=== PATIENT | female | born 1965 | race Caucasian/White ===

== ENCOUNTER 2016-07-28 18:34 | Emergency (ER) | payer OTHER ==
[2016-07-28 20:12] LABS: Hematocrit 44 % (35-47); Hemoglobin 14.6 g/dl (12.0-16.0); Mean Corpuscular HGB Conc 33 g/dl (31-36); Mean Corpuscular Hemoglobin 32 pg (27-31); Mean Corpuscular Volume 96 fL (80-97); Red Blood Count 4.61 10^6/ul (4.0-5.4); Red Cell Distribution Width 14 % (10.5-15); White Blood Count 9.6 10^3/ul (3.5-10.8)
[2016-07-28 20:14] LABS: Comments Flag Yes
[2016-07-28 20:20] LABS: Anion Gap 9 mmol/L (2-11); BUN/Creatinine Ratio 13.6 (8-20); Blood Urea Nitrogen 11 mg/dL (6-24); CO2 Carbon Dioxide 23 mmol/L (22-32); Calcium 9.8 mg/dL (8.6-10.3); Chloride 104 mmol/L (101-111); EGFR African American 97.1 (>60); EGFR Non-African American 75.5 (>60); Glucose 90 mg/dL (70-100); Potassium 4.5 mmol/L (3.5-5.0); Sodium 136 mmol/L (133-145)
[2016-07-28 20:29] LABS: Mean Platelet Volume 9 um3 (7.4-10.4)
[2016-07-28 20:30] LABS: Acetaminophen < 15 mcg/mL; Alcohol 316 mg/dL (<10); Salicylate < 2.50 mg/dL (<30)
[2016-07-28 20:41] LABS: TSH (Thyroid Stimulating Horm) 0.85 mcIU/mL (0.34-5.60)
[2016-07-29 02:32] VITALS: BP 118/71
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
== END 2016-07-29 06:50 | disposition home or self-care (01) ==
LOC: ED 18:34
DX: F10.129 Alcohol abuse with intoxication, unspecified (principal); F32.9 Major depressive disorder, single episode, unspecified; F41.8 Other specified anxiety disorders
CPT/HCPCS: 36415; 80048; 80320; 80329; 84443; 85027; 99284; G0480

== ENCOUNTER 2016-08-24 11:16 | Inpatient (IN) | payer OTHER ==
[2016-08-24] MEDS ORDERED: Thiamine IV* 100 MG, Folic Acid IV* 1 MG, Multiple Vitamin IV ADULT* 10 ML in NS 0.9% 1... IV ONE ×2 (11:32→12:44)
--- NOTE | 2016-08-24 12:26 | ED ---
Substance Abuse/Use - HPI Summary HPI Summary: Pt here requesting detox from ETOH. She has been drinking 2 pints of vodka daily over the past 5-6 years. She last attempted detox around Andrew time - went through [facility] for acute detox then was transferred to [facility] for 2 more weeks but was not allowed admission d/t "medical issues" (pt is unable to articulate reason today however she was last seen here on.... by Dr. Antonio and left AMA - reason for d/c from [facility] in this note was withdrawal seizures. Her last drink was 2 hours ago - at this time, she is feeling very anxious and has photosensitivity. She has some physical agitation as well. Apologizes repeatedly and is crying throughout interview. Her partner is w/ her and reports she has a long standing h/o ETOH abuse w/ multiple attempts at detox. She currently denies nausea, vomiting, headache. When asked if she's sweating, reports this just started now and is mild. When asked about visual hallucinations, states she sees things all the time for many years - does not specify when asked. When asked if she has auditory hallucinations also states yes, but again, cannot specify what she's hearing. She does not have a tremor nor does she appear to have tactile disturbances. Reports anxiety it extremely elevated. She is A&O x 3. She has difficulty relaying her medical conditions and medications - requests her partner speaks for her but when prompted to do so herself, she is able. - History Of Current Complaint Chief Complaint: EDDetoxRequest Stated Complaint: DETOX REQUEST Time Seen by Provider: 08/24/16 11:32 Hx Obtained From: Patient, Family/[employer] Support - male partner - Allergies/Home Medications Allergies/Adverse Reactions: Allergies Allergy/AdvReac Type Severity Reaction Status Date / Time Sulfa Antibiotics Allergy Severe GI Upset Verified 07/28/16 18:56 Food Allergy Intermediate Headache Verified 07/28/16 20:11 Topiramate [From Topamax] Allergy Intermediate Dizziness Verified 07/28/16 20:11 Ascorbate [From Environ] Allergy Mild Unknown Verified 07/28/16 20:11 Reaction Details Erythromycin Allergy Mild GI Upset Verified 07/28/16 20:11 Iron [From Environ] Allergy Mild Unknown Verified 07/28/16 20:11 Reaction Details PMH/Surg Hx/FS Hx/Imm Hx Previously Healthy: Yes Endocrine/Hematology History: Reports: Hx Diabetes - supposed to be diet controlled, but not sure it is well controlled Denies: Hx Anticoagulant Therapy, Hx Blood Disorders, Hx Thyroid Disease Cardiovascular History: Reports: Hx Atrial Fibrillation - ?, Hx Hypercholesterolemia - lipitor, Hx Hypertension - takes lisinopril and propranolol Respiratory History: Reports: Hx Asthma - albuterol GI History: Reports: Hx Gastroesophageal Reflux Disease - prilosec Neurological History: Reports: Other Neuro Impairments/Disorders - acephalgia migraine dx x 10 years Psychiatric History: Reports: Hx Substance Abuse - EtOH dependence - 2 pints vodka daily - last drink 10:30am on 08/24/2016 Denies: Hx of Violent Episodes Against Others Infectious Disease History: No Infectious Disease History: Denies: Traveled Outside the [place] in Last 30 Days - Family History Known Family History: Negative: Cardiac Disease, Hypertension, Diabetes - Social History Alcohol Use: Daily Alcohol Amount: 2 pints vodka daily Hx Substance Use: No Substance Use Type: Reports: None Hx Tobacco Use: No Smoking Status (MU): Never Smoked Tobacco Review of Systems Negative: Fever, Chills Positive: Photophobia ENT: Negative Cardiovascular: Negative Respiratory: Negative Gastrointestinal: Negative Positive: no symptoms reported Musculoskeletal: Negative Skin: Negative Neurological: Negative Positive: Anxious All Other Systems Reviewed And Are Negative: Yes Physical Exam Triage Information Reviewed: Yes Vital Signs On Initial Exam: Initial Vitals Temp Pulse Resp BP Pulse Ox 98.9 F 88 18 163/94 99 08/24/16 11:18 08/24/16 11:18 08/24/16 11:18 08/24/16 11:18 08/24/16 11:18 Vital Signs Reviewed: Yes Appearance: Positive: Pain Distress, Obese Skin: Positive: Warm - cheeks flushed, Dry Head/Face: Positive: Normal Head/Face Inspection Eyes: Positive: EOMI, KINDRA - photophobia, Conjunctiva Clear - anicteric sclera. Negative: Conjunctiva Inflammed, Discharge ENT: Positive: Normal ENT inspection, Hearing grossly normal, Pharynx normal. Negative: Nasal congestion, Nasal drainage Neck: Positive: Supple, Nontender Respiratory/Lung Sounds: Positive: Clear to Auscultation, Breath Sounds Present. Negative: Rales, Rhonchi, Wheezes Cardiovascular: Positive: Normal, S1, S2. Negative: Leg Edema Left, Leg Edema Right Abdomen Description: Positive: Nontender, Soft Bowel Sounds: Positive: Present Musculoskeletal: Positive: Normal, Strength/ROM Intact Neurological: Positive: Normal, Sensory/Motor Intact, Alert, Oriented to Person Place, Time, CN Intact II-III Psychiatric: Positive: Anxious - crying; restless in stretcher, moving legs at times; apologizes repeatedly; adamantly comments she does not want to drink ( ETOH) anymore; tries to defer to male partner multiple times throughout HPI however partner and myself encourage pt to give answers which she eventually does; no SI/HI Diagnostics - Vital Signs Vital Signs Temp Pulse Resp BP Pulse Ox 08/24/16 11:18 98.9 F 88 18 163/94 99 - Laboratory Result Diagrams: 08/24/16 12:20 08/24/16 12:20 Lab Statement: Any lab studies that have been ordered have been reviewed, and results considered in the medical decision making process. Re-Evaluation - Re-Evaluation First Eval Change: Worse - Penelope RN, to evaluate pt - more agitated, irritable and anxious despite banana bag, lisinopril and hydroxyzine - requesting ativan. WAM protocol performed (score 6) and pt presents w/ very mild sx of withdrawal - ordered propranolol as this is pt's baseline anti-hypertensive (and possibly a. fib tx) but this is taking long time so ordered ativan 1mg now and will also provide propranolol as soon as it arrives. Pt to be re-evaluated per protocol Course/Dx - Diagnoses Provider Diagnoses: Alcohol dependence - Physician Notifications Discussed Care Of Patient With: Dr. Jeronimo - will admit pt Discharge - Discharge Plan Condition: Stable Disposition: ADMITTED TO [facility]
[2016-08-24 12:33] LABS: Hematocrit 38 % (35-47); Hemoglobin 12.7 g/dl (12.0-16.0); Mean Corpuscular HGB Conc 33 g/dl (31-36); Mean Corpuscular Hemoglobin 32 pg (27-31); Mean Corpuscular Volume 96 fL (80-97); Mean Platelet Volume 7 um3 (7.4-10.4); Red Cell Distribution Width 15 % (10.5-15); White Blood Count 3.7 10^3/ul (3.5-10.8)
[2016-08-24 12:50] LABS: ALT 82 U/L (7-52); AST 50 U/L (13-39); Albumin 3.9 g/dL (3.2-5.2); Alkaline Phosphatase 78 U/L (34-104); Anion Gap 13 mmol/L (2-11); BUN/Creatinine Ratio 12.1 (8-20); Blood Urea Nitrogen 8 mg/dL (6-24); CO2 Carbon Dioxide 25 mmol/L (22-32); Calcium 8.4 mg/dL (8.6-10.3); Chloride 100 mmol/L (101-111); EGFR African American 122.9 (>60); EGFR Non-African American 95.6 (>60); Globulin 3.1 g/dL (2-4); Glucose 95 mg/dL (70-100); Potassium 3.6 mmol/L (3.5-5.0); Sodium 138 mmol/L (133-145)
[2016-08-24 13:09] LABS: Acetaminophen < 15 mcg/mL; Alcohol 306 mg/dL (<10); Salicylate < 2.50 mg/dL (<30)
[2016-08-24 13:19] LABS: TSH (Thyroid Stimulating Horm) 0.78 mcIU/mL (0.34-5.60)
[2016-08-24] MEDS ORDERED: Lisinopril TAB* 10 MG PO ONE (13:26)
[2016-08-24 13:56] LABS: Urine Bilirubin Negative (Negative); Urine Glucose Negative (Negative); Urine Nitrite Negative (Negative)
[2016-08-24] MEDS ORDERED: hydrOXYzine HCL TAB* 50 MG PO ONE (13:58)
[2016-08-24 14:13] LABS: Benzodiazepine Urine Screen None Detected (None Detect)
[2016-08-24] MEDS ORDERED: LORazepam INJ* 2 MG/ML 1 ML VIAL IV PUSH ONE (15:36)
[2016-08-24] MEDS: Propranolol LA CAP* 120 MG PO SCH (16:28)
[2016-08-24] MEDS ORDERED: Temazepam CAP* 15 MG PO PRN (17:13)
[2016-08-24] MEDS ORDERED: Al Hydrox/Mg Hydrox/Simet LIQ* 30 ML UDC PO PRN (17:13)
[2016-08-24] MEDS ORDERED: Acetaminophen TAB* 325 MG PO PRN (17:13)
[2016-08-24] MEDS ORDERED: MELATONIN 3 MG PO PRN (17:14)
[2016-08-24] MEDS ORDERED: Albuterol HFA INHALER* 8 gm MDI INH PRN (17:14)
[2016-08-24] MEDS ORDERED: Thiamine IV* 100 MG/ML 2 ML VIAL IM ONE (17:17)
[2016-08-24] MEDS ORDERED: Nicotine Inhaler* 10 MG AMP INH PRN (17:40)
[2016-08-24] MEDS: Promethazine TAB* 25 MG PO PRN (18:37)
[2016-08-24] MEDS: LORazepam TAB(*) 1 MG PO SCH ×2 (18:41→21:43)
[2016-08-24] MEDS: NS 0.9% 1000 ML* 1,000 ML IV SCH (19:24)
[2016-08-24] MEDS ORDERED: Ibuprofen TAB* 400 MG PO PRN (20:09)
[2016-08-24] MEDS: Gabapentin CAP(*) 300 MG PO SCH (21:42)
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
[2016-08-25] MEDS: LORazepam TAB(*) 1 MG PO SCH ×7 (00:08→20:41)
[2016-08-25] MEDS: Promethazine TAB* 25 MG PO PRN ×2 (03:36→15:25)
[2016-08-25] MEDS: NS 0.9% 1000 ML* 1,000 ML IV SCH (03:44)
[2016-08-25] MEDS ORDERED: Rizatriptan 10 MG TAB PO PRN (04:14)
[2016-08-25] MEDS: DULoxetine DR CAP* 30 MG CAP.DR PO SCH (08:13)
[2016-08-25] MEDS: Multivitamins/Minerals TAB PO SCH (08:13)
[2016-08-25] MEDS: Thiamine TAB* 100 MG TAB PO SCH (08:13)
[2016-08-25] MEDS: Gabapentin CAP(*) 300 MG PO SCH ×4 (08:13→20:42)
[2016-08-25] MEDS: Omeprazole CAP* 20 MG PO SCH (08:14)
[2016-08-25] MEDS: Folic Acid TAB* 1 MG PO SCH (08:15)
[2016-08-25] MEDS: Propranolol LA CAP* 120 MG PO SCH (09:46)
--- NOTE | 2016-08-25 10:48 | PN ---
Subjective Date of Service: 08/25/16 Interval History: pt feels well. Had mild withdrawal symptoms this am and received Ativan 1 mg PO. Objective Active Medications: Acetaminophen (Tylenol Tab*) 650 mg PO Q6H PRN PRN Reason: FEVER/PAIN Al Hydrox/Mg Hydrox/Simethicone (Maalox Plus*) 30 ml PO Q6H PRN PRN Reason: INDIGESTION Albuterol (Ventolin Hfa Inhaler*) 2 puff INH Q4H PRN PRN Reason: SHORTNESS OF BREATH Duloxetine HCl (Cymbalta Cap*) 60 mg PO DAILY [facility] Last Admin: 08/25/16 08:13 Dose: 60 mg Folic Acid (Folvite Tab*) 1 mg PO DAILY [facility] Last Admin: 08/25/16 08:15 Dose: 1 mg Gabapentin (Neurontin Cap(*)) 600 mg PO QID [facility] Last Admin: 08/25/16 08:13 Dose: 600 mg Ibuprofen (Motrin Tab*) 400 mg PO Q6H PRN PRN Reason: HEADACHE/PAIN Lorazepam (Ativan Tab(*)) 0 mg PO .PER WAM SCORE [facility] PRN Reason: Protocol Last Admin: 08/25/16 08:14 Dose: 1 mg Lorazepam (Ativan Tab(*)) 1 mg PO Q12HR [facility] Multivitamins/Minerals (Theragran/Minerals Tab*) 1 tab PO DAILY [facility] Last Admin: 08/25/16 08:13 Dose: 1 tab Nicotine (Nicotine Inhaler*) 10 mg INH Q2H PRN PRN Reason: CRAVING Non-Formulary Medication (Melatonin [Melatonin]) 3 mg PO BEDTIME PRN PRN Reason: INSOMNIA Omeprazole (Prilosec Cap*) 40 mg PO DAILY [facility] Last Admin: 08/25/16 08:14 Dose: 40 mg Promethazine HCl (Phenergan Tab*) 25 mg PO Q6H PRN PRN Reason: NAUSEA Last Admin: 08/25/16 03:36 Dose: 25 mg Propranolol HCl (Inderal La Cap*) 120 mg PO DAILY [facility] Last Admin: 08/25/16 09:46 Dose: 120 mg Rizatriptan Benzoate (Maxalt-Green Building Materials Designer (Nf)) 10 mg PO Q2H PRN; Protocol PRN Reason: MIGRAINE HEADACHE Thiamine HCl (Vitamin B-1 Tab*) 100 mg PO DAILY [facility] Last Admin: 08/25/16 08:13 Dose: 100 mg Vital Signs 08/24/16 08/24/16 08/24/16 17:20 17:30 18:00 Temperature Pulse Rate 77 78 76 Respiratory Rate Blood Pressure 149/91 154/87 147/85 (mmHg) O2 Sat by Pulse 93 94 92 Oximetry 08/24/16 08/24/16 08/24/16 18:30 18:41 19:08 Temperature 98.8 F Pulse Rate 80 83 Respiratory 16 20 Rate Blood Pressure 144/86 142/69 (mmHg) O2 Sat by Pulse 94 98 Oximetry 08/24/16 08/24/16 08/24/16 19:09 20:00 20:41 Temperature 98.8 F Pulse Rate 83 Respiratory 20 22 18 Rate Blood Pressure 142/69 (mmHg) O2 Sat by Pulse 98 Oximetry 08/24/16 08/24/16 08/24/16 21:13 21:32 21:42 Temperature 98.7 F Pulse Rate 76 Respiratory 18 18 18 Rate Blood Pressure 138/76 (mmHg) O2 Sat by Pulse 96 Oximetry 08/24/16 08/24/16 08/25/16 21:43 23:42 00:08 Temperature Pulse Rate Respiratory 18 18 18 Rate Blood Pressure (mmHg) O2 Sat by Pulse Oximetry 08/25/16 08/25/16 08/25/16 01:05 01:21 01:25 Temperature 97.9 F 99.0 F Pulse Rate 76 73 Respiratory 16 20 20 Rate Blood Pressure 156/86 159/82 (mmHg) O2 Sat by Pulse 96 96 Oximetry 08/25/16 08/25/16 08/25/16 02:08 03:25 03:35 Temperature 98.2 F Pulse Rate 65 Respiratory 22 22 22 Rate Blood Pressure 159/79 (mmHg) O2 Sat by Pulse 96 Oximetry 08/25/16 08/25/16 08/25/16 05:00 05:17 05:18 Temperature Pulse Rate Respiratory 20 20 20 Rate Blood Pressure (mmHg) O2 Sat by Pulse Oximetry 08/25/16 08/25/16 08/25/16 05:35 07:17 07:18 Temperature Pulse Rate Respiratory 20 16 16 Rate Blood Pressure (mmHg) O2 Sat by Pulse Oximetry 08/25/16 08/25/16 08/25/16 07:21 08:00 08:13 Temperature 97.9 F Pulse Rate 76 Respiratory 16 16 16 Rate Blood Pressure 139/73 (mmHg) O2 Sat by Pulse 97 Oximetry 08/25/16 08/25/16 08:14 09:10 Temperature 97.9 F Pulse Rate 70 Respiratory 16 17 Rate Blood Pressure 150/74 (mmHg) O2 Sat by Pulse 96 Oximetry Oxygen Devices in Use Now: None Appearance: 50 yo F in NAd, aAOx3 Eyes: No Scleral Icterus, PERRLA Ears/Nose/Mouth/Throat: NL Teeth, Lips, Gums, Mucous Membranes Moist Neck: NL Appearance and Movements; NL JVP, Trachea Midline Respiratory: Symmetrical Chest Expansion and Respiratory Effort, Clear to Auscultation Cardiovascular: NL Sounds; No Murmurs; No JVD, RRR Abdominal: NL Sounds; No Tenderness; No Distention Lymphatic: No Cervical Adenopathy Extremities: No Edema, No Clubbing, Cyanosis Skin: No Rash or Ulcers, No Nodules or Sclerosis Neurological: Alert and Oriented x 3, NL Muscle Strength and Tone Result Diagrams: 08/24/16 12:20 08/24/16 12:20 Assess/Plan/Problems-Billing Assessment: 50 yo F with h/o depression, alcoholism, seizures, DM(diet controlled), HTN, PATRICIA presents with ETOH level >300, withdrawing - Patient Problems (1) Alcohol dependence with acute alcoholic intoxication Comment: with now, mild withdrawal symptoms. due to h/o large quantities of vodka intake an day and h/o nonalcoholic seizures , will cont Ativan polo RAZIA and WAM protocol cont Thamine and Folate SW consult ordered (2) Depression Comment: cont Cymbalta, psychiatric consult needed once detoxed. Denies SI (3) Obstructive sleep apnea Comment: cont CPAP (4) HTN (hypertension) Comment: cont Inderal, lisinopril (5) Seizure Comment: cont neurontin, seizure precautions. (6) Diabetes Comment: diet controlled (7) DVT prophylaxis Comment: low risk, ambulation Status and Disposition: inpatient for ETOH withdrawal. anticipate inpatient stay x2-3 days.
[2016-08-25] MEDS ORDERED: CMCS: Melatonin (NF) 3 MG TAB PO PRN (19:52)
[2016-08-26] MEDS: DULoxetine DR CAP* 30 MG CAP.DR PO SCH (08:14)
[2016-08-26] MEDS: Multivitamins/Minerals TAB PO SCH (08:14)
[2016-08-26] MEDS: Lisinopril TAB* 10 MG PO SCH (08:14)
[2016-08-26] MEDS: Omeprazole CAP* 20 MG PO SCH (08:14)
[2016-08-26] MEDS: Thiamine TAB* 100 MG TAB PO SCH (08:15)
[2016-08-26] MEDS: Folic Acid TAB* 1 MG PO SCH (08:15)
[2016-08-26] MEDS: Gabapentin CAP(*) 300 MG PO SCH ×4 (08:15→21:10)
[2016-08-26] MEDS: Propranolol LA CAP* 120 MG PO SCH (08:15)
[2016-08-26] MEDS: LORazepam TAB(*) 1 MG PO SCH (08:16)
--- NOTE | 2016-08-26 10:10 | PN ---
Subjective Date of Service: 08/26/16 Interval History: Pt feels well. Still required AM dose of Ativan for tremors Objective Active Medications: Acetaminophen (Tylenol Tab*) 650 mg PO Q6H PRN PRN Reason: FEVER/PAIN Al Hydrox/Mg Hydrox/Simethicone (Maalox Plus*) 30 ml PO Q6H PRN PRN Reason: INDIGESTION Albuterol (Ventolin Hfa Inhaler*) 2 puff INH Q4H PRN PRN Reason: SHORTNESS OF BREATH Duloxetine HCl (Cymbalta Cap*) 60 mg PO DAILY [facility] Last Admin: 08/26/16 08:14 Dose: 60 mg Folic Acid (Folvite Tab*) 1 mg PO DAILY [facility] Last Admin: 08/26/16 08:15 Dose: 1 mg Gabapentin (Neurontin Cap(*)) 600 mg PO QID [facility] Last Admin: 08/26/16 08:15 Dose: 600 mg Ibuprofen (Motrin Tab*) 400 mg PO Q6H PRN PRN Reason: HEADACHE/PAIN Lisinopril (Prinivil Tab*) 40 mg PO DAILY [facility] Last Admin: 08/26/16 08:14 Dose: 40 mg Lorazepam (Ativan Tab(*)) 0 mg PO .PER WAM SCORE [facility] PRN Reason: Protocol Last Admin: 08/25/16 08:14 Dose: 1 mg Lorazepam (Ativan Tab(*)) 1 mg PO Q12HR [facility] Last Admin: 08/26/16 08:16 Dose: 1 mg Melatonin (Melatonin (Nf)) 3 mg PO BEDTIME PRN PRN Reason: INSOMNIA Multivitamins/Minerals (Theragran/Minerals Tab*) 1 tab PO DAILY [facility] Last Admin: 08/26/16 08:14 Dose: 1 tab Nicotine (Nicotine Inhaler*) 10 mg INH Q2H PRN PRN Reason: CRAVING Omeprazole (Prilosec Cap*) 40 mg PO DAILY [facility] Last Admin: 08/26/16 08:14 Dose: 40 mg Promethazine HCl (Phenergan Tab*) 25 mg PO Q6H PRN PRN Reason: NAUSEA Last Admin: 08/25/16 15:25 Dose: 25 mg Propranolol HCl (Inderal La Cap*) 120 mg PO DAILY [facility] Last Admin: 08/26/16 08:15 Dose: 120 mg Rizatriptan Benzoate (Maxalt-Communications Project Manager (Nf)) 10 mg PO Q2H PRN; Protocol PRN Reason: MIGRAINE HEADACHE Thiamine HCl (Vitamin B-1 Tab*) 100 mg PO DAILY [facility] Last Admin: 08/26/16 08:15 Dose: 100 mg Vital Signs 08/25/16 08/25/16 08/25/16 10:13 11:17 13:19 Temperature 98.8 F Pulse Rate 73 Respiratory 16 16 16 Rate Blood Pressure 139/73 (mmHg) O2 Sat by Pulse 97 Oximetry 08/25/16 08/25/16 08/25/16 15:19 15:26 16:40 Temperature 98.4 F Pulse Rate 70 Respiratory 16 16 16 Rate Blood Pressure 159/85 (mmHg) O2 Sat by Pulse 98 Oximetry 08/25/16 08/25/16 08/25/16 17:11 18:17 18:40 Temperature 98.5 F 98.5 F Pulse Rate 69 66 Respiratory 16 16 16 Rate Blood Pressure 153/83 157/85 (mmHg) O2 Sat by Pulse 99 Oximetry 08/25/16 08/25/16 08/25/16 20:41 20:42 20:45 Temperature Pulse Rate Respiratory 20 20 16 Rate Blood Pressure (mmHg) O2 Sat by Pulse Oximetry 08/25/16 08/25/16 08/25/16 21:35 22:41 22:42 Temperature 98.3 F Pulse Rate 77 Respiratory 16 16 16 Rate Blood Pressure 131/70 (mmHg) O2 Sat by Pulse 97 Oximetry 08/25/16 08/26/16 08/26/16 23:21 01:34 03:22 Temperature 98.2 F 97.8 F 98.3 F Pulse Rate 70 72 63 Respiratory 16 16 16 Rate Blood Pressure 127/67 132/62 149/89 (mmHg) O2 Sat by Pulse 99 98 98 Oximetry 08/26/16 08/26/16 08/26/16 05:23 07:26 08:15 Temperature 98.0 F 97.9 F Pulse Rate 65 60 Respiratory 16 16 18 Rate Blood Pressure 150/80 153/79 (mmHg) O2 Sat by Pulse 99 98 Oximetry 08/26/16 08:16 Temperature Pulse Rate Respiratory 18 Rate Blood Pressure (mmHg) O2 Sat by Pulse Oximetry Oxygen Devices in Use Now: None Appearance: 50 yo , obses F in nNAd, AAOx3 Eyes: No Scleral Icterus, PERRLA Ears/Nose/Mouth/Throat: NL Teeth, Lips, Gums, Mucous Membranes Moist Neck: NL Appearance and Movements; NL JVP, Trachea Midline Respiratory: Symmetrical Chest Expansion and Respiratory Effort, Clear to Auscultation Cardiovascular: NL Sounds; No Murmurs; No JVD, RRR Abdominal: NL Sounds; No Tenderness; No Distention Lymphatic: No Cervical Adenopathy Extremities: No Edema, No Clubbing, Cyanosis Skin: No Rash or Ulcers, No Nodules or Sclerosis Neurological: Alert and Oriented x 3, NL Muscle Strength and Tone, - - mild withrdrawal tremors noted in b/l hands Result Diagrams: 08/24/16 12:20 08/24/16 12:20 Assess/Plan/Problems-Billing Assessment: 50 yo F with h/o depression, alcoholism, seizures, DM(diet controlled), HTN, PATRICIA presents with ETOH level >300, withdrawing - Patient Problems (1) Alcohol dependence with acute alcoholic intoxication Comment: with now, mild withdrawal symptoms. due to h/o large quantities of vodka intake an day and h/o nonalcoholic seizures , will cont Ativan polo [facility] and WAM protocol cont Thamine and Folate SW consult ordered Psych consult ordered (2) Depression Comment: cont Cymbalta, psychiatric consult requested Denies SI (3) Obstructive sleep apnea Comment: cont CPAP (4) HTN (hypertension) Comment: cont Inderal, lisinopril (5) Seizure Comment: cont neurontin, seizure precautions. (6) Diabetes Comment: diet controlled (7) DVT prophylaxis Comment: low risk, ambulation Status and Disposition: inpatient for ETOH withdrawal. anticipate inpatient stay x2days.
[2016-08-26] MEDS ORDERED: LORazepam TAB(*) 0.5 MG PO SCH (21:00)
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
[2016-08-27] MEDS: Propranolol LA CAP* 120 MG PO SCH (08:32)
[2016-08-27] MEDS: Lisinopril TAB* 10 MG PO SCH (08:33)
[2016-08-27] MEDS: Gabapentin CAP(*) 300 MG PO SCH (08:33)
[2016-08-27] MEDS: Folic Acid TAB* 1 MG PO SCH (08:35)
[2016-08-27] MEDS: Multivitamins/Minerals TAB PO SCH (08:35)
[2016-08-27] MEDS: Omeprazole CAP* 20 MG PO SCH (08:35)
[2016-08-27] MEDS: Thiamine TAB* 100 MG TAB PO SCH (08:35)
[2016-08-27] MEDS ORDERED: DULoxetine DR CAP* 30 MG CAP.DR PO SCH (09:00)
--- NOTE | 2016-08-27 10:25 | DCNOTE ---
Subjective Date of Service: 08/27/16 Interval History: No new c/o, overall doing well. Objective Active Medications: Acetaminophen (Tylenol Tab*) 650 mg PO Q6H PRN PRN Reason: FEVER/PAIN Al Hydrox/Mg Hydrox/Simethicone (Maalox Plus*) 30 ml PO Q6H PRN PRN Reason: INDIGESTION Albuterol (Ventolin Hfa Inhaler*) 2 puff INH Q4H PRN PRN Reason: SHORTNESS OF BREATH Duloxetine HCl (Cymbalta Cap*) 90 mg PO DAILY [facility] Last Admin: 08/27/16 08:34 Dose: 90 mg Folic Acid (Folvite Tab*) 1 mg PO DAILY [facility] Last Admin: 08/27/16 08:35 Dose: 1 mg Gabapentin (Neurontin Cap(*)) 600 mg PO QID [facility] Last Admin: 08/27/16 08:33 Dose: 600 mg Ibuprofen (Motrin Tab*) 400 mg PO Q6H PRN PRN Reason: HEADACHE/PAIN Lisinopril (Prinivil Tab*) 40 mg PO DAILY [facility] Last Admin: 08/27/16 08:33 Dose: 40 mg Lorazepam (Ativan Tab(*)) 0 mg PO .PER WAM SCORE [facility] PRN Reason: Protocol Last Admin: 08/25/16 08:14 Dose: 1 mg Multivitamins/Minerals (Theragran/Minerals Tab*) 1 tab PO DAILY [facility] Last Admin: 08/27/16 08:35 Dose: 1 tab Nicotine (Nicotine Inhaler*) 10 mg INH Q2H PRN PRN Reason: CRAVING Omeprazole (Prilosec Cap*) 40 mg PO DAILY [facility] Last Admin: 08/27/16 08:35 Dose: 40 mg Promethazine HCl (Phenergan Tab*) 25 mg PO Q6H PRN PRN Reason: NAUSEA Last Admin: 08/25/16 15:25 Dose: 25 mg Propranolol HCl (Inderal La Cap*) 120 mg PO DAILY [facility] Last Admin: 08/27/16 08:32 Dose: 120 mg Rizatriptan Benzoate (Maxalt-Underground Mining Section Foreman (Nf)) 10 mg PO Q2H PRN; Protocol PRN Reason: MIGRAINE HEADACHE Thiamine HCl (Vitamin B-1 Tab*) 100 mg PO DAILY [facility] Last Admin: 08/27/16 08:35 Dose: 100 mg Vital Signs 08/26/16 08/26/16 08/26/16 10:54 12:49 13:39 Temperature 98.7 F 98.4 F Pulse Rate 63 61 Respiratory 16 18 16 Rate Blood Pressure 156/85 151/78 (mmHg) O2 Sat by Pulse 97 97 Oximetry 08/26/16 08/26/16 08/26/16 14:49 15:56 17:33 Temperature 98.9 F Pulse Rate 63 Respiratory 14 16 16 Rate Blood Pressure 140/75 (mmHg) O2 Sat by Pulse 98 Oximetry 08/26/16 08/26/16 08/26/16 18:38 19:00 19:33 Temperature 99.0 F Pulse Rate 65 Respiratory 16 16 16 Rate Blood Pressure 143/73 (mmHg) O2 Sat by Pulse 99 Oximetry 08/26/16 08/26/16 08/26/16 20:00 20:30 21:00 Temperature 99.0 F Pulse Rate 63 Respiratory 16 12 16 Rate Blood Pressure 146/78 (mmHg) O2 Sat by Pulse 97 Oximetry 08/26/16 08/26/16 08/26/16 21:10 22:25 22:54 Temperature 97.9 F Pulse Rate 62 Respiratory 16 16 16 Rate Blood Pressure 135/78 (mmHg) O2 Sat by Pulse 98 Oximetry 08/26/16 08/26/16 08/27/16 23:10 23:14 01:26 Temperature 98.0 F 98.1 F Pulse Rate 64 57 Respiratory 16 16 16 Rate Blood Pressure 155/72 148/78 (mmHg) O2 Sat by Pulse 99 99 Oximetry 08/27/16 08/27/16 08/27/16 01:27 03:12 03:16 Temperature 98.1 F Pulse Rate 67 Respiratory 16 16 16 Rate Blood Pressure 130/67 (mmHg) O2 Sat by Pulse 99 Oximetry 08/27/16 08/27/16 08/27/16 05:19 05:20 07:00 Temperature 97.9 F Pulse Rate 62 Respiratory 15 15 18 Rate Blood Pressure 131/65 (mmHg) O2 Sat by Pulse 99 Oximetry 08/27/16 08/27/16 08/27/16 07:16 08:33 09:00 Temperature 98.6 F Pulse Rate 62 Respiratory 14 16 16 Rate Blood Pressure 130/68 (mmHg) O2 Sat by Pulse 97 Oximetry 08/27/16 09:05 Temperature 97.7 F Pulse Rate 69 Respiratory 16 Rate Blood Pressure 147/71 (mmHg) O2 Sat by Pulse 98 Oximetry Oxygen Devices in Use Now: - - Using hospital equipment. She has her own at home. Appearance: Alert, supine in bed. In good spirits. Looks comfortable. Ears/Nose/Mouth/Throat: Clear Oropharnyx, Mucous Membranes Moist Neck: NL Appearance and Movements; NL JVP, No Thyroid Enlargement, Masses Respiratory: Symmetrical Chest Expansion and Respiratory Effort, Clear to Auscultation, Clear to Percussion Cardiovascular: NL Sounds; No Murmurs; No JVD, RRR, No Edema, - Extremities: No Edema, No Clubbing, Cyanosis, - Skin: No Rash or Ulcers, No Nodules or Sclerosis, - Neurological: Alert and Oriented x 3, NL Sensation Result Diagrams: 08/24/16 12:20 08/24/16 12:20 Assess/Plan/Problems-Billing Assessment: 50 yo F with h/o depression, alcoholism, seizures, DM(diet controlled), HTN, PATRICIA presents with ETOH level >300, withdrawing - Patient Problems (1) Alcohol dependence with acute alcoholic intoxication Current Visit: No Status: Acute Code(s): F10.229 - ALCOHOL DEPENDENCE WITH INTOXICATION, UNSPECIFIED SNOMED Code(s): 428945182 Comment: No withdrawal signs today, no lorazepam for 48 hrs. SW will see pt before discharge. Psych consult reviewed. (2) Depression Current Visit: No Status: Acute Code(s): F32.9 - MAJOR DEPRESSIVE DISORDER, SINGLE EPISODE, UNSPECIFIED SNOMED Code(s): 65635444 Comment: Duloxetine dose increased, transmitted to her pharmacy. (3) Obstructive sleep apnea Current Visit: No Status: Acute Code(s): G47.33 - OBSTRUCTIVE SLEEP APNEA ( ADULT) (PEDIATRIC) SNOMED Code(s): 20522369 Comment: Cont her own CPAP at home. (4) Classic migraine Current Visit: No Status: Acute Code(s): G43.109 - MIGRAINE WITH AURA, NOT INTRACTABLE, W/O STATUS MIGRAINOSUS SNOMED Code(s): 2721049 Comment: Cont PRN rizatriptan. (5) Seizure Current Visit: No Status: Acute Code(s): R56.9 - UNSPECIFIED CONVULSIONS SNOMED Code(s): 17755977 Comment: cont neurontin at home (6) Tobacco abuse Current Visit: Yes Status: Acute Code(s): Z72.0 - TOBACCO USE SNOMED Code( s): 200998759 Comment: Pt advised to quit smoking and avoid second hand smoke. Status and Disposition: Discharge now. SW to see patient before discharge. Fup her Mari[facility] providers.
--- NOTE | 2016-08-27 10:29 | PN ---
Progress Note - Progress Note Note: Time spent on discharge 45 minutes.
[2016-08-27 13:05] VITALS: BP 152/89
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
== END 2016-08-27 13:05 | disposition home or self-care (01) | DRG 775 ==
LOC: ED 11:16 → MED 17:06
PROVIDERS: ADMIT Internal Medicine; ATTEND Internal Medicine
PROC: HZ2ZZZZ Detoxification Services for Substance Abuse Treatment (ICD-10-PCS; principal; 2016-08-24)
PROC: 5A09357 Assistance with Respiratory Ventilation, Less than 24 Consecutive Hours, Continuous Positive Airway Pressure (ICD-10-PCS; 2016-08-24)
DX: F10.239 Alcohol dependence with withdrawal, unspecified (principal); I48.91 Unspecified atrial fibrillation; I10 Essential (primary) hypertension; F32.9 Major depressive disorder, single episode, unspecified; G40.909 Epilepsy, unspecified, not intractable, without status epilepticus; F41.9 Anxiety disorder, unspecified; Z88.2 Allergy status to sulfonamides; Z88.1 Allergy status to other antibiotic agents; Z88.8 Allergy status to other drugs, medicaments and biological substances; Z91.018 Allergy to other foods; E11.9 Type 2 diabetes mellitus without complications; E78.00 Pure hypercholesterolemia, unspecified; J45.909 Unspecified asthma, uncomplicated; K21.9 Gastro-esophageal reflux disease without esophagitis; E66.9 Obesity, unspecified; Y90.8 Blood alcohol level of 240 mg/100 ml or more; G47.33 Obstructive sleep apnea (adult) (pediatric); Z82.49 Family history of ischemic heart disease and other diseases of the circulatory system; Z81.1 Family history of alcohol abuse and dependence; Z80.3 Family history of malignant neoplasm of breast; Z56.0 Unemployment, unspecified; Z59.0 Homelessness; Z68.34 Body mass index [BMI] 34.0-34.9, adult; F10.229 Alcohol dependence with intoxication, unspecified; G43.109 Migraine with aura, not intractable, without status migrainosus; F17.200 Nicotine dependence, unspecified, uncomplicated
CPT/HCPCS: 36415; 80053; 80307; 80320; 80329; 81003; 84443; 85025; 93005; 94660; 94760; A9270-GY; G0480; J2060; J3411

== ENCOUNTER 2016-10-01 15:15 | Emergency (ER) | payer OTHER ==
[2016-10-01 16:12] LABS: Hematocrit 49 % (35-47); Hemoglobin 16.5 g/dl (12.0-16.0); Mean Corpuscular HGB Conc 34 g/dl (31-36); Mean Corpuscular Hemoglobin 32 pg (27-31); Mean Corpuscular Volume 95 fL (80-97); Mean Platelet Volume 7 um3 (7.4-10.4); Red Blood Count 5.14 10^6/ul (4.0-5.4); Red Cell Distribution Width 15 % (10.5-15); White Blood Count 5.5 10^3/ul (3.5-10.8)
[2016-10-01 16:26] LABS: ALT 176 U/L (7-52); AST 174 U/L (13-39); Albumin 4.9 g/dL (3.2-5.2); Alkaline Phosphatase 100 U/L (34-104); Anion Gap 16 mmol/L (2-11); BUN/Creatinine Ratio 15.9 (8-20); Blood Urea Nitrogen 11 mg/dL (6-24); CO2 Carbon Dioxide 25 mmol/L (22-32); Calcium 9.3 mg/dL (8.6-10.3); Chloride 98 mmol/L (101-111); EGFR African American 116.8 (>60); EGFR Non-African American 90.8 (>60); Globulin 3.7 g/dL (2-4); Glucose 96 mg/dL (70-100); Potassium 3.7 mmol/L (3.5-5.0); Sodium 139 mmol/L (133-145); Total Protein 8.6 g/dL (6.4-8.9)
[2016-10-01 16:32] LABS: Acetaminophen < 15 mcg/mL; Salicylate < 2.50 mg/dL (<30)
[2016-10-01 16:34] LABS: Alcohol 418 mg/dL (<10)
[2016-10-01 17:55] LABS: Urine Bacteria 2+ (Absent); Urine Bilirubin Negative (Negative); Urine Glucose 1+(50 mg/dL) (Negative); Urine Nitrite Negative (Negative)
[2016-10-01 18:05] LABS: Benzodiazepine Urine Screen None Detected (None Detect)
--- NOTE | 2016-10-01 18:11 | ED ---
Morgan East Adam, scribed for Faizan Betancourt MD on 10/01/16 at 1534 . Substance Abuse/Use - HPI Summary HPI Summary: Pt is a 50 year old female presenting with EtOH intoxication. She states that she drank 1 liter of vodka today. The pt lives with her grandmother at [place] and the pt's sister called EMS because she said their grandmother was unable to take care of the pt. Pt states that she has been an alcoholic for "a long time. " She states that she has received treatment for alcoholism in the past but she is unable to say when the last time was. She also states that she has not been eating. 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 Overdose Characteristics: Oral Timing Of Abuse: Daily Severity Initially: Moderate Severity Currently: Moderate Character: Depressed, Frustrated Aggravating Factor(s): Nothing Alleviating Factor(s): Nothing Associated Signs And Symptoms: Other: - Decreased PO intake - Allergies/Home Medications Allergies/Adverse Reactions: Allergies Allergy/AdvReac Type Severity Reaction Status Date / Time Sulfa Antibiotics Allergy Severe GI Upset Verified 07/28/16 18:56 Food Allergy Intermediate Headache Verified 07/28/16 20:11 Topiramate [From Topamax] Allergy Intermediate Dizziness Verified 07/28/16 20:11 Ascorbate [From Environ] Allergy Mild Unknown Verified 07/28/16 20:11 Reaction Details Erythromycin Allergy Mild GI Upset Verified 07/28/16 20:11 Iron [From Environ] Allergy Mild Unknown Verified 07/28/16 20:11 Reaction Details PMH/Surg Hx/FS Hx/Imm Hx Endocrine/Hematology History: Reports: Hx Diabetes - diet controlled Denies: Hx Anticoagulant Therapy, Hx Blood Disorders, Hx Thyroid Disease Cardiovascular History: Reports: Hx Atrial Fibrillation - ?, Hx Hypercholesterolemia - lipitor, Hx Hypertension - takes lisinopril and propranolol, Other Cardiovascular Problems/Disorders - Atrial fibrilation Respiratory History: Reports: Hx Asthma - albuterol, Hx Sleep Apnea GI History: Reports: Hx Gastroesophageal Reflux Disease - prilosec Musculoskeletal History: Reports: Hx Back Problems, Hx Scoliosis Sensory History: Reports: Hx Contacts or Glasses Opthamlomology History: Reports: Hx Contacts or Glasses Neurological History: Reports: Hx Seizures, Other Neuro Impairments/Disorders - acephalgia migraine dx x 10 years, meningioma Psychiatric History: Reports: Hx Depression, Hx Substance Abuse - EtOH dependence - 2 pints vodka daily - last drink 10:30am on 08/24/2016 Denies: Hx of Violent Episodes Against Others - Surgical History Surgery Procedure, Year, and Place: bilateral knee arthroscopy Hx Anesthesia Reactions: No - Family History Known Family History: Negative: Cardiac Disease, Hypertension, Diabetes - Social History Occupation: Unemployed Lives: With Family - Power of health manager Alcohol Use: Daily Alcohol Amount: 2 pints vodka daily Hx Substance Use: No Substance Use Type: Reports: None Hx Tobacco Use: No Smoking Status (MU): Never Smoked Tobacco Review of Systems Negative: Fever Psychological: Other - Intoxicated Positive: Depressed All Other Systems Reviewed And Are Negative: Yes Physical Exam Triage Information Reviewed: Yes Vital Signs On Initial Exam: Initial Vitals Temp Pulse Resp BP Pulse Ox 99.1 F 96 18 143/72 96 10/01/16 15:39 10/01/16 15:39 10/01/16 15:39 10/01/16 15:39 10/01/16 15:39 Vital Signs Reviewed: Yes Appearance: Positive: Well-Appearing, No Pain Distress Skin: Positive: Warm, Skin Color Reflects Adequate Perfusion, Dry Head/Face: Positive: Normal Head/Face Inspection Eyes: Positive: Normal ENT: Positive: Normal ENT inspection Neck: Positive: Supple, Nontender Respiratory/Lung Sounds: Positive: Clear to Auscultation, Breath Sounds Present Cardiovascular: Positive: RRR Abdomen Description: Positive: Nontender, Soft Bowel Sounds: Positive: Present Musculoskeletal: Positive: Normal Neurological: Positive: Normal Psychiatric: Positive: Affect/Mood Appropriate Diagnostics - Vital Signs Vital Signs Temp Pulse Resp BP Pulse Ox 10/01/16 15:43 99.1 F 96 18 143/72 96 10/01/16 15:39 99.1 F 96 18 143/72 96 - Laboratory Lab Results: Lab Results 10/01/16 10/01/16 10/01/16 Range/Units 15:40 15:40 15:40 WBC 5.5 (3.5-10.8) 10^3/ul RBC 5.14 (4.0-5.4) 10^6/ul Hgb 16.5 H (12.0-16.0) g/dl Hct 49 H (35-47) % MCV 95 (80-97) fL MCH 32 H (27-31) pg MCHC 34 (31-36) g/dl RDW 15 (10.5-15) % Plt Count 277 (150-450) 10^3/ul MPV 7 L (7.4-10.4) um3 Neut % (Auto) 52.6 (38-83) % Lymph % (Auto) 39.1 (25-47) % [place] % (Auto) 7.0 (1-9) % Eos % (Auto) 0.7 (0-6) % Baso % (Auto) 0.6 (0-2) % Absolute Neuts (auto) 2.9 (1.5-7.7) 10^3/ul Absolute Lymphs (auto) 2.1 (1.0-4.8) 10^3/ul Absolute Monos (auto) 0.4 (0-0.8) 10^3/ul Absolute Eos (auto) 0 (0-0.6) 10^3/ul Absolute Basos (auto) 0 (0-0.2) 10^3/ul Absolute Nucleated RBC 0.01 10^3/ul Nucleated RBC % 0.1 Sodium 139 (133-145) mmol/L Potassium 3.7 (3.5-5.0) mmol/L Chloride 98 L (101-111) mmol/L Carbon Dioxide 25 (22-32) mmol/L Anion Gap 16 H (2-11) mmol/L BUN 11 (6-24) mg/dL Creatinine 0.69 (0.51-0.95) mg/dL Est GFR ( Amer) 116.8 (>60) Est GFR (Non-Af Amer) 90.8 (>60) BUN/Creatinine Ratio 15.9 (8-20) Glucose 96 (70-100) mg/dL Lactic Acid 3.4 H* (0.5-2.0) mmol/L Calcium 9.3 (8.6-10.3) mg/dL Total Bilirubin 0.60 (0.2-1.0) mg/dL AST 174 H (13-39) U/L ALT 176 H (7-52) U/L Alkaline Phosphatase 100 (34-104) U/L Total Protein 8.6 (6.4-8.9) g/dL Albumin 4.9 (3.2-5.2) g/dL Globulin 3.7 (2-4) g/dL Albumin/Globulin Ratio 1.3 (1-3) Urine Color Urine Appearance Urine pH (5-9) Ur Specific [place] (1.010-1.030) Urine Protein (Negative) Urine Ketones (Negative) Urine Blood (Negative) Urine Nitrate (Negative) Urine Bilirubin (Negative) Urine Urobilinogen (Negative) Ur Leukocyte Esterase (Negative) Urine WBC (Auto) (Absent) Urine RBC (Auto) (Absent) Ur Squamous Epith Cells (Absent) Urine Bacteria (Absent) Urine Glucose (Negative) Salicylates < 2.50 (<30) mg/dL Urine Opiates Screen (None Detect) Acetaminophen < 15 mcg/mL Ur Barbiturates Screen (None Detect) Ur Phencyclidine Scrn (None Detect) Ur Amphetamines Screen (None Detect) U Benzodiazepines Scrn (None Detect) Urine Cocaine Screen (None Detect) U Cannabinoids Screen (None Detect) Serum Alcohol 418 H* (<10) mg/dL 10/01/16 10/01/16 Range/Units 17:20 17:20 WBC (3.5-10.8) 10^3/ul RBC (4.0-5.4) 10^6/ul Hgb (12.0-16.0) g/dl Hct (35-47) % MCV (80-97) fL MCH (27-31) pg MCHC (31-36) g/dl RDW (10.5-15) % Plt Count (150-450) 10^3/ul MPV (7.4-10.4) um3 Neut % (Auto) (38-83) % Lymph % (Auto) (25-47) % [place] % (Auto) (1-9) % Eos % (Auto) (0-6) % Baso % (Auto) (0-2) % Absolute Neuts (auto) (1.5-7.7) 10^3/ul Absolute Lymphs (auto) (1.0-4.8) 10^3/ul Absolute Monos (auto) (0-0.8) 10^3/ul Absolute Eos (auto) (0-0.6) 10^3/ul Absolute Basos (auto) (0-0.2) 10^3/ul Absolute Nucleated RBC 10^3/ul Nucleated RBC % Sodium (133-145) mmol/L Potassium (3.5-5.0) mmol/L Chloride (101-111) mmol/L Carbon Dioxide (22-32) mmol/L Anion Gap (2-11) mmol/L BUN (6-24) mg/dL Creatinine (0.51-0.95) mg/dL Est GFR ( Amer) (>60) Est GFR (Non-Af Amer) (>60) BUN/Creatinine Ratio (8-20) Glucose (70-100) mg/dL Lactic Acid (0.5-2.0) mmol/L Calcium (8.6-10.3) mg/dL Total Bilirubin (0.2-1.0) mg/dL AST (13-39) U/L ALT (7-52) U/L Alkaline Phosphatase (34-104) U/L Total Protein (6.4-8.9) g/dL Albumin (3.2-5.2) g/dL Globulin (2-4) g/dL Albumin/Globulin Ratio (1-3) Urine Color Kasia Urine Appearance Cloudy Urine pH 5.0 (5-9) Ur Specific [place] 1.027 (1.010-1.030) Urine Protein 2+(100 mg/dl) H (Negative) Urine Ketones 2+ H (Negative) Urine Blood 1+ H (Negative) Urine Nitrate Negative (Negative) Urine Bilirubin Negative (Negative) Urine Urobilinogen Negative (Negative) Ur Leukocyte Esterase Negative (Negative) Urine WBC (Auto) 2+(11-20/hpf) H (Absent) Urine RBC (Auto) 3+(>10/hpf) H (Absent) Ur Squamous Epith Cells Present H (Absent) Urine Bacteria 2+ H (Absent) Urine Glucose 1+(50 mg/dl) H (Negative) Salicylates (<30) mg/dL Urine Opiates Screen None detected (None Detect) Acetaminophen mcg/mL Ur Barbiturates Screen None detected (None Detect) Ur Phencyclidine Scrn None detected (None Detect) Ur Amphetamines Screen None detected (None Detect) U Benzodiazepines Scrn None detected (None Detect) Urine Cocaine Screen None detected (None Detect) U Cannabinoids Screen None detected (None Detect) Serum Alcohol (<10) mg/dL Result Diagrams: 10/01/16 15:40 10/01/16 15:40 Lab Statement: Any lab studies that have been ordered have been reviewed, and results considered in the medical decision making process. Course/Dx - Course Course Of Treatment: Ms. Avalos presented to the ED intoxicated and concerned about her chronic drinking. Her blood alcohol was over 400 and she is currently sobering up. - Diagnoses Provider Diagnoses: Alcohol intoxication - Physician Notifications Discussed Care Of Patient With: Dr. Louis at change of shift Discharge - Discharge Plan Condition: Stable Disposition: OTHER Discharge Disposition Comment: Change of shift The documentation as recorded by the Morgan bruch Adam accurately reflects the service I personally performed and the decisions made by me, Faizan Betancourt MD.
[2016-10-01 18:31] VITALS: BP 158/83
[2016-10-01] MEDS ORDERED: Ondansetron ODT TAB* 4 MG ONE (21:59)
[2016-10-01] MEDS ORDERED: Ondansetron ODT TAB* 4 MG PO ONE (22:02)
[2016-10-01] MEDS ORDERED: chlordiazePOXIDE CAP* 10 MG PO ONE ×2 (23:20→23:23)
--- NOTE | 2016-10-03 21:30 | ED ---
ILiborio Billy, scribed for Gagan Louis MD on 10/01/16 at 2326 . Progress - Progress Note Progress Note: Patient signed out by Dr. Betancourt at shift change. Re-Evaluation - Re-Evaluation First Eval Re-Evaluation Time: 23:24 Comment: Patient is not tremulous, hypertensive, or tachycardic. She is not diaphoretic. There are no signs of active withdrawal or suicidal ideation. Course/Dx - Course Course Of Treatment: Patient signed out by Dr. Betancourt at shift change. On re- evaluation, patient complained of chest pain. There is superficial skin pain over the right lateral chest. It has been constant since Charli, and is unchanged and not worse with exertion. Her PCP is aware of this pain. Patient has a history of diabetes, and it is possible that this is secondary to neuropathy. She will be discharged to follow up with PCP. She was written a prescription for Librium, which will be sent to her preferred pharmacy at [facility]. The patient has health insurance and will be referred to a homeless fpc. She will be given a taxi voucher. She was given the chemical dependency referral form. - Diagnoses Provider Diagnoses: Alcoholism Discharge - Discharge Plan Condition: Stable Disposition: HOME Prescriptions: [email or web address] CAP* [Librium CAP*] 10 mg PO QID #20 cap MDD 4 Patient Education Materials: Alcohol Intoxication (ED), Abuse of Alcohol (ED) Referrals: [facility] [Outside] [facility] [Outside] Additional Instructions: Follow up with [facility] this week. The documentation as recorded by the Liborio burch Billy accurately reflects the service I personally performed and the decisions made by me, Gagan Louis MD.
== END 2016-10-02 00:05 | disposition home or self-care (01) ==
LOC: ED 15:15
DX: F10.229 Alcohol dependence with intoxication, unspecified (principal); R07.9 Chest pain, unspecified; J45.909 Unspecified asthma, uncomplicated; E78.00 Pure hypercholesterolemia, unspecified; I10 Essential (primary) hypertension; Y90.8 Blood alcohol level of 240 mg/100 ml or more; I48.91 Unspecified atrial fibrillation
CPT/HCPCS: 36415; 80053; 80307; 80320; 80329; 81003; 81015; 83605; 85025; 87086; 99283; A9270-GY; G0480